=== PATIENT | male | born 1965 | race Caucasian/White ===

== ENCOUNTER 2019-12-12 14:30 | Emergency (ER) | payer MEDICAID, SELFPAY ==
[2019-12-12 14:34] VITALS: BP 127/93; PULSE 79; RESP 18; TEMP 36.9; O2SAT 97; BMI 27.3
[2019-12-12 14:41] VITALS: BP 127/93; PULSE 70; RESP 18; O2SAT 97
--- NOTE | 2019-12-12 14:42 | ED_ITS ---
HPI - Chest Pain General: Chief Complaint: Chest Pain Stated Complaint: cp Time Seen by Provider: 12/12/19 14:34 History of Present Illness: HPI narrative: 54-year-old male comes in complaining of chest pain for the last week. Claims the chest pain being subst ernal he gets slight shortness of breath but is been on and off for a week he is related to constipation states that it got better after he had a bowel movement but then recurred again today so he came into the emergency room. He has no known history of coronary disease and there is no family history of coronary artery disease. MD complaint: chest pain Onset (ago): week(s) (1) Timing of current episode: constant Prior episodes: Yes Onset: during rest, during exertion and after eating Pain location: substernal Pain radiation: none Severity: moderate Quality: tightness and heaviness Relieving factors: nothing Exacerbating factors: nothing Associated symptoms: Reports other (Constipation); Deny abdominal pain, dyspnea, fever(s), nausea or vomiting Treatment prior to arrival: none Review of Systems Const: Denies: fever(s), chills, body aches, change in appetite, fatigue or malaise ENMT: Denies: throat pain, ear or mastoid pain, nasal discharge or nasal congestion Card: Denies: chest pain, edema, dyspnea on exertion or orthopnea Resp: Denies: dyspnea, productive cough or non-productive cough GI: Denies: abdominal pain, nausea, vomiting, hematemesis, coffee ground emesis, diarrhea, constipation, bloating, hematochezia or melena : Denies: flank pain, dysuria, urinary frequency or urinary urgency Skin/Breast: Denies: rash or pruritus PFSH ED PFSH: Medical History (Updated 12/12/19 @ 15:47 by Scar Joyner DO) Asthma Epididymitis Surgical History (Updated 12/12/19 @ 15:23 by Scar Joyner DO) H/O foot surgery Social History Smoking and tobacco status: former smoker Physical Exam Const: COMMON NORMALS: no acute distress GENERAL APPEARANCE: cooperative and comfortable ORIENTATION/CONSCIOUSNESS: Yes awake, Yes oriented to person, Yes oriented to place and Yes oriented to time HENMT: COMMON NORMALS: normocephalic, atraumatic, hearing grossly normal bilaterally, external ears normal, EAC's normal, TM's normal bilaterally, Normal nasal mucous membranes and turbinates present, moist oral mucous membranes and oropharynx normal HEAD & SCALP: normocephalic and atraumatic NOSE: Normal nasal mucous membranes and turbinates present EXTERNAL EAR: Yes external ears normal EXTERNAL AUDITORY CANAL: EAC's normal TYMPANIC MEMBRANE: TM's normal bilaterally Eye: COMMON NORMALS: Equal, round and reactive pupils present, EOMs intact bilaterally, conjunctivae normal and no scleral icterus CONJUNCTIVA: Yes conjunctivae normal PUPIL: Yes Equal, round and reactive pupils present Neck/C-Spine: COMMON NORMALS: full ROM, no lymphadenopathy, supple and no JVD Lymph: LYMPHATIC: no lymphadenopathy noted and no lymphedema noted Resp: COMMON NORMALS: normal respiratory effort, No retractions, No use of accessory muscles and clear to auscultation bilaterally AUSCULTATION: clear to auscultation bilaterally Cardio: COMMON NORMALS: no JVD, regular rate, regular rhythm and No murmurs present (Cardio) RATE: regular rate RHYTHM: regular rhythm GI: COMMON NORMALS: Soft to palpation and No hepatosplenomegaly present AUSCULTATION: Yes normoactive bowel sounds PALPATION: Yes Soft to palpation, No Tenderness to palpation present (GI), No Guarding due to palpation present (GI) and Yes No hepatosplenomegaly present Extremity: COMMON NORMALS: normal to inspection, capillary refill normal, no clubbing, cyanosis or edema, no calf tenderness and no pedal edema Neuro: SENSORIUM/ORIENTATION: Yes oriented to person, Yes oriented to place and Yes oriented to time Skin: COMMON NORMALS: no rashes or lesions noted GENERAL SKIN EXAM: no rashes or lesions noted Course Vital Signs: Vital signs: Vital Signs Temperature 98.4 F 12/12/19 14:34 Pulse Rate 64 12/12/19 15:52 Respiratory Rate 13 12/12/19 15:52 Blood Pressure 137/90 12/12/19 15:52 Pulse Oximetry 96 12/12/19 15:52 MDM - Chest Pain MDM Narrative: Medical decision making narrative: Serial enzymes negative will discharge home and make arrangements for graded exercise test. Also can take a baby aspirin and start on Protonix is worsening or change symptoms return to the emergency room Lab Data: Labs: Lab Results 12/12/19 12/12/19 12/12/19 Range/Units 15:04 15:04 15:04 WBC 6.6 (4.0-10.0) 10^3/ uL RBC 5.25 (4.1-5.3) 10^6/u L Hgb 14.2 (11.7-16.6) g/dL Hct 44.4 (42.0-52.0) % MCV 84.6 (80-94) fL MCH 27.0 L (28.0-34.0) pg MCHC 32.0 (30.0-36.0) g/dL RDW 13.3 (12.1-15.1) % Plt Count 271 (130-400) 10^3/c mm MPV 11.0 H (7.4-10.4) fL Neut % (Auto) 57.8 % Lymph % (Auto) 32.8 % Ector % (Auto) 5.8 % Eos % (Auto) 2.9 % Baso % (Auto) 0.5 % Neut # (Auto) 3.8 (1.8-7.7) 10^3/u L Lymph # (Auto) 2.2 (0.8-4.8) 10^3/u L Ector # (Auto) 0.4 (0.2-0.9) 10^3/u L Eos # (Auto) 0.2 (0.0-0.8) 10^3/u L Baso # (Auto) 0.0 (0.0-0.1) 10^3/u L Nucleated RBC % (a uto) 0 % Nucleated RBCs # 0.0 /100WBC Sodium 139 (136-145) mmol/L Potassium 4.0 (3.5-5.1) mmol/L Chloride 106 (98-107) mmol/L Carbon Dioxide 23 (22-29) mmol/L Anion Gap 14.0 (5-19) BUN 10 (6-20) mg/dL Creatinine 1.1 (0.7-1.2) mg/dL GFR Calculation 69.5 L (90-130) mL/min Glucose 163 H (65-115) mg/dL Calculated Osmolal ity 288 (285-295) mOsm/k g Calcium 9.5 (8.5-10.5) mg/dL Total Bilirubin 0.3 (0.15-1.2) mg/dL AST 24 (0-40) U/L ALT 41 (0-41) U/L Alkaline Phosphata se 97 (40-130) IU/L Creatine Kinase 102 (39-308) U/L Troponin T Baselin e 6 (0-15) ng/L Total Protein 6.3 L (6.6-8.7) g/dL Albumin 4.4 (3.5-5.2) g/dL Globulin 1.9 (1.3-4.6) g/dL Discharge Plan Discharge Patient Disposition: Home, Self-Care Clinical Impression: Atypical chest pain Condition: Stable Prescriptions: New Protonix 40 mg tablet,delayed release (DR/EC) 40 mg PO QAM 28 Days Qty: 28 RF: 0 aspirin 81 mg tablet,chewable 81 mg PO DAILY Qty: 30 RF: 0 Discharge Orders: Discharge Order (Routine); Ordered 12/12/19 Ordered By: Scar Joyner Referrals: Bib Pirere, [Primary Care Provider] - Discharge Diet: Usual diet Discharge Activity: Increase activity as tolerated Activity Restrictions/Additional Instructions: Take baby aspirin daily as well as Protonix daily half hour prior to breakfast in the morning. Case management will call to set you up for a graded exercise test to further evaluate your heart. All of your labs today were negative. Discharge Date/Time: 12/12/19 15:52 Coding Level of Care Code ED Physical Therapy Attendant for Sherie Fwd Exam Comprehensive
--- NOTE | 2019-12-12 14:43 | XRR_ITS ---
PROCEDURE INFORMATION: Exam: XR Chest, 1 View Exam date and time: 12/12/2019 2:44 PM Age: 54 years old Clinical indication: Shortness of breath; Chest pain; Additional info: Dyspnea/cough TECHNIQUE: Imaging protocol: XR of the chest Views: 1 view. COMPARISON: No relevant prior studies available. FINDINGS: Lungs: Unremarkable. No consolidation. Pleural space: Unremarkable. No pleural effusion. No pneumothorax. Heart/Mediastinum: Unremarkable. No cardiomegaly. Bones/joints: Unremarkable. XR/XR chest 1V portable [id number] IMPRESSION: No acute findings.
--- NOTE | 2019-12-12 14:43 | ECG_ITS ---
Measurements Intervals Jeff Rate: 81 P: 44 AL: 132 QRS: 97 QRSD: 106 T: 48 QT: 370 QTc: 430 SINUS RHYTHM WITH SINUS ARRHYTHMIA BORDERLINE RIGHT AXIS DEVIATION [QRS AXIS > 90] POSSIBLE RIGHT VENTRICULAR CONDUCTION DELAY [RSR (QR) IN V1/V2] POSSIBLE INFERIOR MYOCARDIAL INFARCTION , PROBABLY OLD WITH POSTERIOR EXTENSION [30 ms Q WAVE IN II/aVFPROMINENT R WAVE IN V1/ No previous ECG available for comparison Electronically Signed On 12-12-2019 15:19:09 CDT by Rose Marin M.D. [email or web address] elise
[2019-12-12 15:09] VITALS: BP 127/93; PULSE 64; RESP 12; O2SAT 97
[2019-12-12 15:21] LABS: Basophils % 0.5 %; Eosinophils # 0.2 10^3/uL (0.0-0.8); Eosinophils % 2.9 %; Hematocrit 44.4 % (42.0-52.0); Hemoglobin 14.2 g/dL (11.7-16.6); Lymphocytes # 2.2 10^3/uL (0.8-4.8); Lymphocytes % 32.8 %; Mean Corpuscular Volume 84.6 fL (80-94); Monocytes # 0.4 10^3/uL (0.2-0.9); Monocytes % 5.8 %; Neutrophils # 3.8 10^3/uL (1.8-7.7); Neutrophils % 57.8 %; Nucleated Red Blood Cells % 0 %; Platelet Count 271 10^3/cmm (130-400); Red Blood Count 5.25 10^6/uL (4.1-5.3); Red Cell Distribution Width 13.3 % (12.1-15.1); White Blood Count 6.6 10^3/uL (4.0-10.0)
[2019-12-12 15:30] VITALS: BP 137/90; PULSE 61; RESP 18; O2SAT 96
[2019-12-12 15:43] LABS: Alanine Aminotransferase 41 U/L (0-41); Albumin Level 4.4 g/dL (3.5-5.2); Alkaline Phosphatase 97 IU/L (40-130); Aspartate Amino Transferase 24 U/L (0-40); Blood Urea Nitrogen 10 mg/dL (6-20); Calcium 9.5 mg/dL (8.5-10.5); Carbon Dioxide 23 mmol/L (22-29); Chloride 106 mmol/L (98-107); Creatine Phosphokinase 102 U/L (39-308); Globulin 1.9 g/dL (1.3-4.6); Glomerular Filtration Rate 69.5 mL/min (90-130); Glucose 163 mg/dL (65-115); Osmolality Calculated 288 mOsm/kg (285-295); Sodium 139 mmol/L (136-145); Total Bilirubin 0.3 mg/dL (0.15-1.2); Total Protein 6.3 g/dL (6.6-8.7)
[2019-12-12 15:45] LABS: Troponin(5th) Baseline 6 ng/L (0-15)
[2019-12-12 15:52] VITALS: BP 137/90; PULSE 64; RESP 13; O2SAT 96
--- NOTE | 2019-12-15 13:58 | DCPLANNER ---
dock manager had message to schedule a outpatient stress test for patient. dock manager faxed order to centralized scheduling, will call for appointment information.
--- NOTE | 2019-12-18 08:46 | DCPLANNER ---
Patient has an out patient stress test scheduled for Saturday, January 01, 2020 at 12:15.
--- NOTE | 2020-01-05 15:40 | DCPLANNER ---
Patients stress test that was scheduled for 01.01.20 was rescheduled.
== END 2019-12-12 15:52 | disposition home or self-care (01) ==
PROVIDERS: Emergency Provider Family Medicine; PCP Family Medicine
DX: R07.89 Other chest pain (principal); Z79.82 Long term (current) use of aspirin; J45.909 Unspecified asthma, uncomplicated; Z87.891 Personal history of nicotine dependence
CPT/HCPCS: 12345; 36415; 71045; 80053; 82550; 84484; 85025; 93005; 99282; 99283

== ENCOUNTER 2019-12-14 11:15 | Outpatient (CLI) | payer SELFPAY ==
--- NOTE | 2019-12-14 11:19 | XR_ITS ---
WS: [id number] XR acute abdomen series [id number] REASON FOR EXAM: ABDOMINAL BLOATING/CONSTIPATION FINDINGS: Acute obstruction series upright chest AP upright abdomen show normal-appearing chest with no pneumonia. AP upright abdomen shows scattered gas and fecal stasis. No free air is identified. XR/XR acute abdomen series [id number] IMPRESSION: Nonspecific abdominal findings with fecal stasis.
== END 2019-12-14 11:16 | disposition home or self-care (01) ==
PROVIDERS: PCP Family Medicine; Visit Provider Nurse Practitioner Family
DX: R14.0 Abdominal distension (gaseous) (principal); K59.00 Constipation, unspecified
CPT/HCPCS: 74022

== ENCOUNTER 2020-01-15 07:58 | Outpatient (CLI) | payer SELFPAY ==
[2020-01-15 08:59] VITALS: BMI 25.8
--- NOTE | 2020-01-15 09:41 | ECG_ITS ---
[facility] Test Date: 2020-01-15 Pat Name: Thomas Humphreys Department: Room: Gender: Male Band Tumbler: : 1965 Requested By: Rehana Soto Order Number: [id number] Tania MD: Zeeshan Castillo M.D. Interpretive Statements NAME OF STUDY: TREADMILL STRESS TEST INDICATION: Chest Pain RESULTS TO [facility]ARES DO EXERCISE DATA: The patient was exercised by Yakov protocol. Baseline heart rate was 55 beats per minute. Baseline blood pressure was 119/96 millimeters of mercury. Target heart rate was 165 beats per minute. Maximum heart rate achieved was 151, which was 91 % of the target heart rate. Maximum blood pressure was 201/97 millimeters of mercury. Total exercise time was 9 minutes. Maximum METs achieved was 10.2, maximum VO2 was 35.7. The reason for ending the test was maximum effort achieved. The patient complained of shortness of during the stress test, which then resolved at the end of the test. ELECTROCARDIOGRAM: BASELINE: Showed sinus rhythm, normal axis, right bundle branch block EXERCISE: At the peak exercise level, mild inferolateral ST depression which is upsloping noted RECOVERY: During the recovery period, heart rate dropped appropriately. No significant ST-T changes in the recovery suggestive of ischemia noted. CONCLUSION: 1. Exercise capacity good 2. Heart rate response was appropriate. 3. Blood pressure response was hypertensive. 4. Symptoms not suggestive of ischemia. 5. Electrocardiogram portion of the stress test was not suggestive of ischemia. 6. Nuclear scan will be documented separately. Electronically Signed On 01-25-2020 23:50:42 CDT by Zeeshan Castillo M.D. [id number]
[2020-01-15 10:08] VITALS: BP 112/88; PULSE 72
== END 2020-01-15 07:59 | disposition home or self-care (01) ==
PROVIDERS: PCP Family Medicine; Visit Provider Family Medicine
DX: R07.9 Chest pain, unspecified (principal)
CPT/HCPCS: 93017

== ENCOUNTER → 2022-10-17 08:37 | Outpatient (BNVA) | payer SELFPAY | PROVIDERS: PCP Clinical Nurse Specialist Adult Health; Visit Provider Clinical Nurse Specialist Adult Health | DX: Z00.00 Encounter for general adult medical examination without abnormal findings (principal) | CPT/HCPCS: 80053; 80061; 85025 ==

== ENCOUNTER 2025-03-29 06:57 | Outpatient (CLI) | payer OTHER, SELFPAY ==
--- NOTE | 2025-03-29 07:14 | MR_ITS ---
WS: [id number] MRI RIGHT SHOULDER NONCONTRAST TECHNIQUE: Sagittal T2, coronal T1, T2 and proton density imaging. Axial gradient PDE imaging. CLINICAL INFORMATION: ROTATOR CUFF SYNDROME OF R SHOULDER COMPARISON: None. FINDINGS: Advanced degenerative arthritis AC joint with narrowing of the subacromial space. Subacromial spurring. Impingement on the underlying rotator cuff. High- grade complete tear of the distal supraspinatus with retraction measuring approximately 11 mm. Chronic thinning of the infraspinatus which appears intact. Tendinopathy infraspinatus with tiny insertional tear. Normal teres minor. Tendinopathy subscapularis with a tiny interstitial tear. Tear of the transverse humeral ligament with proximal subluxation/dislocation of the proximal biceps tendon from the bicipital groove. Tendinopathy intra- articular biceps tendon. Moderate degenerative narrowing of the glenohumeral articulation. MR/MR shoulder RT wo con* [id number] IMPRESSION: 1. Advanced arthritis AC joint with narrowing of the subacromial space with crowder bacromial spurring. 2. High-grade full-thickness tear of the supraspinatus distally with 11 mm of tendon retraction. 3. Tendinopathy with chronic thinning of the infraspinatus with a tiny inserti onal tear. 4. Tendinopathy with a tiny interstitial tear subscapularis tendon. Tear of th e transverse humeral ligament. 5. Subluxation/dislocation proximal biceps tendon from the bicipital groove. 6. Tendinopathy intra-articular biceps tendon with T2 signal normality.
== END 2025-03-29 06:58 | disposition home or self-care (01) ==
LOC: RAD 07:02
PROVIDERS: PCP Clinical Nurse Specialist Adult Health; Visit Provider Family Medicine
DX: M75.01 Adhesive capsulitis of right shoulder (principal)
CPT/HCPCS: 73221

== ENCOUNTER 2025-04-21 13:32 | Outpatient (CLI) | payer OTHER, SELFPAY | END 2025-04-21 13:33 | disposition home or self-care (01) | PROVIDERS: PCP Clinical Nurse Specialist Adult Health; Referring Provider Family Medicine; Visit Provider Internal Medicine Pulmonary Disease | DX: M25.511 Pain in right shoulder (principal); G47.33 Obstructive sleep apnea (adult) (pediatric) | CPT/HCPCS: 73030; G0399 ==

== ENCOUNTER → 2025-05-10 10:20 | Outpatient (BNVA) | payer OTHER, SELFPAY | PROVIDERS: PCP Clinical Nurse Specialist Adult Health; Visit Provider Registered Nurse Neonatal Intensive Care | DX: R39.89 Other symptoms and signs involving the genitourinary system (principal); J02.9 Acute pharyngitis, unspecified | CPT/HCPCS: 87400; 87426 ==